=== PATIENT | male | born 1950 | race Caucasian/White ===

== ENCOUNTER 2019-05-13 21:47 | Emergency (ER) | payer MEDICARE ==
[~2019-05-13] VITALS: Ht 182.9 cm; Wt 105.0 kg
[~2019-05-13 21:47] MED LIST: (None)3.5 GM OP; AMOX/K CLAV875 M1 PO; AUGMENTIN875 MG OR; CIALIS10 MG PO; CIALIS20 MG PO; CIPROFLOXACN500 MG PO; CORTISPORIN OTI10 ML AU; DOXYCYCL HYC100 MG PO; GENTAMICIN15 ML/BTL OP; HYDROCHLORO25 MG/TAB PO; LISINOPRIL20 MG PO; LISINOPRIL40 MG PO; LORTAB 10 OR; MECLIZINE25 MG PO; METRONIDAZOL500 MG PO; MOBIC7.5 M1 PO; PHENERGAN25 MG/TAB PO; PREDNISONE20 MG PO; SIMVASTATIN10 MG OR; ULTRAM50 M1 PO; WELCHOL3.75 GM PO; ZOFRAN ODT4 MG PO
[2019-05-14 00:29] LABS: HEMATOCRIT 41.6 % (39.0-50.0); HEMOGLOBIN 14.1 g/dl (14.0-18.0); IMMATURE GRANULOCYTES 0.4 % (0.0-5.0); MEAN CELL VOLUME 88.5 fL CALC (80.0-100.0); MEAN CORPUSCULAR HGB CONC 33.9 g/L CALC (32.0-36.0); NEUT# 3.38 thou/uL (1.82-7.42); RED BLOOD COUNT 4.7 mill/uL (4.70-6.10); RED CELL DISTRI WIDTH 13.3 % (11.5-15.5)
[2019-05-14 00:39] LABS: ALBUMIN 4.2 g/dL (3.2-5.0); ANION GAP 15 (6-22 (CALC)); BILIRUBIN, TOTAL 0.8 mg/dL (0.0-1.4); BUN 18 mg/dL (8-23); BUN/CREATININE RATIO 17 (12-20 (CALC)); CARBON DIOXIDE 25 mmol/l (22-30); CHLORIDE 97 mmol/l (95-108); GFR > 60 ML/MIN (>=60 (CALC)); GFR FOR AFR.AMER. > 60 ML/MIN (>=60 (CALC)); POTASSIUM 3.6 mmol/l (3.5-5.1); SGOT/AST 43 u/l (19-48); SODIUM 133 mmol/l (137-146); TOTAL PROTEIN 7.4 g/dL (6.3-8.2)
[2019-05-14 00:40] LABS: ALKALINE PHOSPHATASE 85 u/l (38-126)
[2019-05-14] MEDS ORDERED: TAM75CAP PO (04:25)
[2019-05-14 04:30] VITALS: BP 137/64
== END 2019-05-14 04:30 | disposition home or self-care (01) ==
LOC: ED 21:47
PROVIDERS: Emergency Medicine
DX: J11.1 Influenza due to unidentified influenza virus with other respiratory manifestations (principal)

== ENCOUNTER 2019-07-25 | Emergency (ER) | payer MEDICARE ==
[~2019-07-25] MED LIST changes: +TAM75CAP PO
[2019-07-25 15:37] LABS: HEMATOCRIT 39.9 % (39.0-50.0); HEMOGLOBIN 13.7 g/dl (14.0-18.0); IMMATURE GRANULOCYTES 0.5 % (0.0-5.0); MEAN CELL VOLUME 88.3 fL CALC (80.0-100.0); MEAN CORPUSCULAR HGB 30.3 pG CALC (26.0-32.0); MEAN CORPUSCULAR HGB CONC 34.3 g/L CALC (32.0-36.0); NEUT# 3.47 thou/uL (1.82-7.42); RED BLOOD COUNT 4.52 mill/uL (4.70-6.10); RED CELL DISTRI WIDTH 13.1 % (11.5-15.5)
[2019-07-25 15:47] LABS: ALBUMIN 4.3 g/dL (3.2-5.0); ALKALINE PHOSPHATASE 51 u/l (38-126); AMYLASE 85 u/l (30-110); ANION GAP 14 (6-22 (CALC)); BILIRUBIN, TOTAL 0.8 mg/dL (0.0-1.4); BUN 23 mg/dL (8-23); BUN/CREATININE RATIO 25 (12-20 (CALC)); CARBON DIOXIDE 26 mmol/l (22-30); CHLORIDE 99 mmol/l (95-108); CREATININE 0.9 mg/dL (0.7-1.3); GFR > 60 ML/MIN (>=60 (CALC)); GFR FOR AFR.AMER. > 60 ML/MIN (>=60 (CALC)); LIPASE 92 u/l (23-300); POTASSIUM 3.8 mmol/l (3.5-5.1); SGOT/AST 49 u/l (19-48); SODIUM 135 mmol/l (137-146); TOTAL PROTEIN 7.7 g/dL (6.3-8.2)
[2019-07-25 15:59] LABS: MYOGLOBIN 50 ng/mL (0 - 121)
[2019-07-25] MEDS ORDERED: NAPROXEN500 MG PO (16:30)
[2019-07-25] MEDS ORDERED: ONDANSETRON4 MG PO (16:35)
[2019-07-25] MEDS ORDERED: LISINOP/HCTZ1 TA2 PO (16:49)
[2019-07-25] MEDS ORDERED: HYDROCO/APAP1 T13 PO (16:50)
== END 2019-07-25 16:41 | disposition home or self-care (01) ==
PROVIDERS: Emergency Medicine
DX: K29.70 Gastritis, unspecified, without bleeding (principal); I10 Essential (primary) hypertension

== ENCOUNTER 2020-07-01 10:55 | Inpatient (IN) | payer MEDICARE ==
[~2020-07-01] VITALS: Ht 182.9 cm; Wt 107.5 kg
[~2020-07-01 10:55] MED LIST changes: +HYDROCO/APAP1 T13 PO; +LISINOP/HCTZ1 TA2 PO; +NAPROXEN500 MG PO; +ONDANSETRON4 MG PO
[2020-07-07 13:40] VITALS: BP 182/84
[2020-07-07 13:55] VITALS: BP 175/92
[2020-07-07 14:10] VITALS: BP 172/87
[2020-07-07 14:25] VITALS: BP 177/100
[2020-07-07 16:40] VITALS: BP 168/102
[2020-07-07 19:30] VITALS: BP 151/81
[2020-07-08 00:39] VITALS: BP 132/78
[2020-07-08 05:52] LABS: HEMATOCRIT 39.7 % (39.0-50.0); HEMOGLOBIN 13.3 g/dl (14.0-18.0)
[2020-07-08 07:15] VITALS: BP 140/71
[2020-07-08 08:45] VITALS: BP 140/71
== END 2020-07-08 11:50 | disposition home or self-care (01) | DRG 470 ==
LOC: OR 07-07 07:30 → MS2 07-07 08:59 → OR 07-07 13:15 → MS2 07-07 15:23
PROVIDERS: ADMIT Orthopaedic Surgery; ATTEND Internal Medicine
PROC: 0SRB04A Replacement of Left Hip Joint with Ceramic on Polyethylene Synthetic Substitute, Uncemented, Open Approach (ICD-10-PCS; principal; 2020-07-07)
DX: M16.12 Unilateral primary osteoarthritis, left hip (principal); I10 Essential (primary) hypertension; H81.10 Benign paroxysmal vertigo, unspecified ear
CPT/HCPCS: J0131

== ENCOUNTER 2021-04-29 07:01 | Day surgery (SDC) | payer MEDICARE ==
[~2021-04-29] VITALS: Ht 182.9 cm; Wt 106.6 kg
[~2021-04-29 07:01] MED LIST changes: +LORTAB 5/3255 MG PO; +NEURONTIN600 MG PO
[2021-04-29] MEDS ORDERED: TYLENOL325 M2 PO (07:36)
[2021-04-29 09:42] VITALS: BP 159/87
== END 2021-04-29 08:20 | disposition home or self-care (01) ==
LOC: ORM 07:01
PROVIDERS: ATTEND Anesthesiology Pain Medicine
DX: M54.50 Low back pain, unspecified (principal); Z09 Encounter for follow-up examination after completed treatment for conditions other than malignant neoplasm

== ENCOUNTER 2021-07-28 09:53 | Emergency (ER) | payer MEDICARE ==
[~2021-07-28] VITALS: Ht 182.9 cm; Wt 108.0 kg
[~2021-07-28 09:53] MED LIST changes: +TYLENOL325 M2 PO
[2021-07-28] MEDS ORDERED: NAPROXEN500 MG PO (10:42)
[2021-07-28 10:59] VITALS: BP 177/81
== END 2021-07-28 11:22 | disposition home or self-care (01) ==
LOC: ED 09:53
DX: M77.8 Other enthesopathies, not elsewhere classified (principal); I10 Essential (primary) hypertension